=== PATIENT | male | born 1945 | race Caucasian/White ===

== ENCOUNTER 2017-04-06 05:32 | Inpatient (IN) | payer OTHER, MEDICARE ==
[~2017-04-06] VITALS: Ht 182.9 cm; Wt 91.5 kg
[2017-04-06] VITALS (10 sets, daily range): BP systolic 90–155; BP diastolic 47–69; PULSE 64–76; RESP 12–18; TEMP 98.3–98.8; O2SAT 92–99
[~2017-04-06 05:32] MED LIST: AMLO5TAB2 PO; ASPI81TA23 PO; DICL75TA PO; HYDR25TA5 PO; IBUP1TAB7 PO; LOSA50TA PO; LOVA40TA PO; PANT40TA3 PO
[2017-04-06] MEDS ORDERED: POVIDONE IODINE 5% (ANTISEPSIS KIT) 4 APPLICATIONS EACH NARE PRN (06:00)
[2017-04-06] MEDS ORDERED: SODIUM CHLORID 0.9% 500 ML IV PRN (06:00)
[2017-04-06] MEDS ORDERED: METOPROLOL TARTRATE 25 MG TAB PO PRN (06:00)
[2017-04-06] MEDS ORDERED: PAPAVERINE 60 MG-NITROGLYCERIN 100 MCG-DILTIAZEM 100 MG in NS 100 ML IRRIGATION SCH ×4 (06:00)
[2017-04-06] MEDS ORDERED: SODIUM CHLORIDE 0.9% FLUSH 10 ML FLUSH IV FLUSH PRN ×3 (06:00→12:45)
[2017-04-06] MEDS ORDERED: DEXTROSE 50% IN WATER 50 ML VIAL(D50) IV PUSH PRN ×2 (06:00→12:45)
[2017-04-06] MEDS ORDERED: CHLORHEXIDINE GLUCONATE 4% SOLN 120 ML BTL TOPICAL SCH (06:00)
[2017-04-06] MEDS ORDERED: CHLORHEXIDINE GLUCONATE 2 % 1 PACK (2 CLOTHS) TOPICAL PRN (06:00)
[2017-04-06] MEDS ORDERED: INSULIN REGULAR 100 UNITS in NS 100 ML IV PRN (06:00)
[2017-04-06] MEDS ORDERED: LACTATED RINGER'S 1000 ML IV PRN (06:00)
[2017-04-06] MEDS ORDERED: CEFAZOLIN 500 MG in NS IRR BTL 500 ML IRRIGATION SCH (06:00)
[2017-04-06] MEDS ORDERED: METOPROLOL TARTRATE 25 MG TAB PO SCH (06:00)
[2017-04-06] MEDS ORDERED: VANCOMYCIN HCL 1000 MG VIAL ONE (06:19)
[2017-04-06] MEDS ORDERED: ceFAZolin 2 GM PREMIX 100 ML ONE (06:19)
[2017-04-06] MEDS ORDERED: HEPARIN SODIUM - SQ 10,000 UNITS/ML VIAL ONE (06:19)
[2017-04-06] MEDS ORDERED: POTASSIUM CHLORIDE 40 MEQ/20 ML VIAL ONE (07:15)
[2017-04-06] MEDS ORDERED: CUSTODIOL HTK IRR SOLN 3,000 ML ONE (07:15)
[2017-04-06] MEDS ORDERED: CALCIUM CHLORIDE 10% SOLN 1 GRAM/10 ML SYR ONE (07:16)
[2017-04-06] MEDS ORDERED: MANNITOL INJ 100 ML ONE (07:16)
[2017-04-06] MEDS ORDERED: HEPARIN SODIUM - IV 10,000 UNITS/10 ML VIAL ONE (07:16)
[2017-04-06] MEDS ORDERED: ALBUMIN 25% INJ 50 ML IV ONE (07:17)
[2017-04-06] MEDS ORDERED: SODIUM BICARBONATE 8.4% INJ 150 ML ONE (07:17)
[2017-04-06] MEDS: ceFAZolin 2 GM PREMIX 50 ML IV SCH ×3 (08:12→19:20)
--- NOTE | 2017-04-06 09:01 | PD.CAR.PN ---
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
[2017-04-06] MEDS ORDERED: SODIUM CHLORIDE 0.9% INJ 50 ML ONE (11:54)
[2017-04-06] MEDS ORDERED: LACTATED RINGER'S 1000 ML INJ 1,000 ML IV ONE (12:00)
[2017-04-06] MEDS ORDERED: PROTAMINE SULFATE 250 MG/25 ML VIAL IV ONE (12:00)
[2017-04-06] MEDS ORDERED: ePHEDrine/NS 25 MG/5 ML SYRINGE IV ONE (12:00)
[2017-04-06] MEDS ORDERED: PHENYLEPHRINE HCL 10 MG/ML VIAL IV ONE (12:00)
[2017-04-06] MEDS ORDERED: SODIUM CHLOR 0.9% 250 ML INJ 500 ML IV ONE (12:00)
[2017-04-06] MEDS ORDERED: AMINOCAPROIC ACID INJ 250 MG/ML 20 ML VIAL IV ONE (12:00)
[2017-04-06] MEDS ORDERED: DEXMEDETOMIDINE HCL 200 MCG/2 ML VIAL IV ONE (12:00)
[2017-04-06] MEDS ORDERED: PHENYLEPH/NS 1000 MCG/10 ML SYR IV ONE (12:00)
[2017-04-06] MEDS ORDERED: CARDIOPLEGIC IRR 2,000 ML ONE (12:00)
[2017-04-06] MEDS ORDERED: NORMOSOL R INJ 2,000 ML IV ONE (12:00)
[2017-04-06] MEDS ORDERED: HEPARIN SODIUM - SQ 10,000 UNITS/ML VIAL OTHER ONE (12:00)
[2017-04-06] MEDS ORDERED: NITROGLYCERIN 50 MG/DEXTROSE 5% SOLN 250 ML BTL IV ONE (12:00)
[2017-04-06] MEDS ORDERED: MAGNESIUM SULFATE 1 GM/2 ML VIAL IV ONE (12:00)
[2017-04-06] MEDS ORDERED: VECURONIUM BROMIDE 10 MG VIAL IV ONE (12:00)
[2017-04-06] MEDS ORDERED: NS 100 ML (PAB BAG) 100 ML IV ONE (12:00)
[2017-04-06] MEDS ORDERED: LACTATED RINGER'S 1000 ML INJ 500 ML IV PRN (12:34)
[2017-04-06] MEDS ORDERED: ACETAMINOPHEN 650 MG SUPP RECTAL PRN (12:45)
[2017-04-06] MEDS ORDERED: POTASSIUM CHLORIDE 20 MEQ CONTROLLED RELEASE TAB PO PRN ×2 (12:45)
[2017-04-06] MEDS ORDERED: hydrALAZINE HCL 20 MG/ML VIAL IV PUSH PRN (12:45)
[2017-04-06] MEDS ORDERED: METOPROLOL TARTRATE 5 MG/5 ML VIAL IV PUSH PRN (12:45)
[2017-04-06] MEDS ORDERED: CALCIUM CHLORIDE INJ 1 GM in SODIUM CHLORIDE 0.9% INJ 100 ML IV PRN (12:45)
[2017-04-06] MEDS ORDERED: SODIUM BICARBONATE 8.4% SOLN 50 MEQ/50 ML VIAL IV PUSH PRN ×2 (12:45)
[2017-04-06] MEDS ORDERED: ONDANSETRON HCL 4 MG/2 ML VIAL IV PUSH PRN (12:45)
[2017-04-06] MEDS ORDERED: POTASSIUM CHLOR 20 MEQ PREMIX 100 ML IV PRN ×3 (12:45)
[2017-04-06] MEDS ORDERED: RESP: RACEPINEPHRINE 2.25% 0.5 ML NEB NEB PRN (12:45)
[2017-04-06] MEDS ORDERED: ACETAMINOPHEN 325 MG TAB PO PRN (12:45)
[2017-04-06] MEDS ORDERED: Post-op Orders (for Pharmacy) OTHER ONE (12:45)
[2017-04-06] MEDS ORDERED: ACETAMINOPHEN/HYDROcodone 325 MG/5 MG TAB PO PRN (12:45)
[2017-04-06] MEDS ORDERED: CALCIUM CHLORIDE 10% 1 GRAM/10 ML VIAL IV PUSH PRN (12:45)
[2017-04-06] MEDS ORDERED: MEPERIDINE HCL 25 MG/ML VIAL IV PUSH PRN (12:45)
[2017-04-06] MEDS ORDERED: MAGNESIUM SULFATE INJ 2 GM in SODIUM CHLORIDE 0.9% INJ 100 ML IV PRN ×4 (12:45)
[2017-04-06] MEDS ORDERED: ALBUMIN 5% INJ 250 ML IV PRN (12:45)
[2017-04-06] MEDS ORDERED: ACETAMINOPHEN 1000 MG/100 ML 100 ML IV SCH (13:30)
[2017-04-06] MEDS ORDERED: PHENYLEPHRINE INJ 40 MG in DEXTROSE 5% IN WATE 500 ML INJ 496 ML IV PRN ×2 (14:00)
[2017-04-06] MEDS ORDERED: CLEVIDIPINE INJ 50 ML IV PRN (14:00)
[2017-04-06] MEDS ORDERED: NITROGLYCERIN-D5W 50 MG/250 ML 250 ML IV PRN (14:00)
[2017-04-06] MEDS ORDERED: DEXMEDETOMIDINE INJ 200 MCG in SODIUM CHLORIDE 0.9% INJ 50 ML IV PRN (14:00)
[2017-04-06] MEDS ORDERED: INSULIN REGULAR (IV INFUSION) 100 UNITS in SODIUM CHLORIDE 0.9% INJ 99 ML IV PRN (14:00)
[2017-04-06] MEDS ORDERED: DOPamine INJ PREMIX 500 ML IV PRN (14:00)
[2017-04-06] MEDS ORDERED: DOBUTamine PREMIX DRIP 250 ML IV PRN (14:00)
--- NOTE | 2017-04-06 14:04 | RADRPT ---
EXAM DATE/TIME: 04/06/2017 13:19 [facility] COMPARISON: No previous studies available for comparison. INDICATIONS : Status post coronary artery bypass graft surgery. MEDICAL HISTORY : None. SURGICAL HISTORY : None. ENCOUNTER: Initial ACUITY: 1 day PAIN SCORE: Non-responsive. LOCATION: chest FINDINGS: ET tube, mediastinal drain, central line in good position. Minimal bibasilar parenchymal changes are evident. Lung vascularity mediastinum appears appropriate. CONCLUSION: Support the breast in good position. There is no pneumothorax. Lungs are reasonably clear. Say Krishna MD FACR on April 06, 2017 at 14:01 Board Certified Radiologist. This report was verified electronically.
[2017-04-06] MEDS ORDERED: MORPHINE SULFATE 2 MG/ML INJ IV PUSH PRN (14:15)
[2017-04-06] MEDS ORDERED: HYDROmorphone HCL 2 MG TAB PO PRN (14:30)
[2017-04-06] MEDS: KETOROLAC TROMETHAMINE 30 MG/ML (IVP) VIAL IV PUSH PRN (14:37)
[2017-04-06] MEDS ORDERED: PILL SPLITTER OTHER PRN (14:45)
--- NOTE | 2017-04-06 14:51 | PD.OP ---
cc: Luis Eduardo Maldonado MD; Trina Maradiaga Jr., MD Operative Report Date of Surgery: Apr 06, 2017 Preoperative Diagnosis: Postoperative Diagnosis: Procedure: SURGICAL PROCEDURE 1. Coronary Artery Bypass Grafting x 1 with reverse saphenous vein graft to the left posterior descending branch of the Circumflex artery (LPDA) 2. Aortic Valve Replacement with 25 mm Medtronic Mosaic Tissue Valve 3. Let Leg Endoscopic Vein Harvesting 4. Intraoperative Vein Mapping Surgeon: Luis Eduardo Maldonado Hooker Up(s): Dorcas Villegas Operation and Findings: PREPROCEDURE DIAGNOSES 1. Severe Left Posterior Descending Artery (LPDA) Coronary Artery Disease. 2. Critical Aortic Valve Stenosis 3. HTN POSTPROCEDURE DIAGNOSES Same SURGICAL PROCEDURE 1. Coronary Artery Bypass Grafting x 1 with reverse saphenous vein graft to the left posterior descending branch of the Circumflex artery (LPDA) 2. Aortic Valve Replacement with 25 mm Medtronic Mosaic Tissue Valve 3. Let Leg Endoscopic Vein Harvesting 4. Intraoperative Vein Mapping SURGEON Luis Eduardo Maldonado MD AUTOMOTIVE EXHAUST EMISSIONS TECHNICIAN ANGIE Maradiaga PA-C - [facility] ANESTHESIA General endotracheal INSPECTION SUPERVISOR NATALIE Mcclendon MD PREPARATION ChloraPrep. COUNTS Needle, sponge, and instrument counts were correct. DRAINS Two 32-[place] mediastinal tubes. COMPLICATIONS None. INDICATIONS FOR PROCEDURE The patient is a 71-year-old presenting with shortness of breath and known . Patient was noted to have critical LPDA coronary artery disease in addition to severe . The patient is being brought to the operating room for surgical revascularization and AVR therapy. PROCEDURE Patient was brought to the operating room and placed supine on the OR table. Following the induction of adequate general endotracheal anesthesia and placement of appropriate monitoring devices, intraoperative vein mapping was performed which revealed -caliber conduit in bilateral lower extremities. The patient was then prepped and draped in standard sterile fashion. Next, 2500 units of intravenous heparin was given. The left greater saphenous vein was harvested endoscopically. This appeared to be a useable-caliber conduit. Simultaneously, a median sternotomy was performed. The patient was systemically heparinized and anticoagulation monitored by serial ACT measurements. The pericardium was then divided in the midline, the cradle created and target analyzed. Two pursestring sutures of 2-0 Ethibond were placed on the aorta proximal to the takeoff of the innominate artery, another was placed in the right atrial appendage. At this point, aortic and 2-stage venous cannulas were introduced and attached to the arterial and venous components of the bypass circuit respectively. Antegrade cardioplegia cannula and a left ventricular vent, through the right superior pulmonary vein, were also placed. The patient was placed on cardiopulmonary bypass and core cooling initiated to a temperature of 32 degrees centigrade. At this point, the reversed saphenous vein was anastomosed to the LPDA (2 mm) in an end-to-side fashion using 7-0 Prolene. The crossclamp was applied and 1.8 L of cardioplegia solution ( Fpc HTK) given in an antegrade fashion into the root as well as through the vein graft, in addition to topical cooling with slushed saline. Upon achieving adequate diastolic arrest of the heart a transverse aortotomy was performed extending towards the non-coronary annulus. The aortic valve was noted to be very heavily calcified with the calcification extending into ascending aorta. The valve was excised and sent for microbiologic analysis. Circumferential decalcification was performed. Horizontal mattress sutures of pledgeted 2-0 Ethibond were placed circumferentially in the aortic annulus with the pledgets on the ventricular side. After adequate sizing, a 25 mm Medtronic Mosaic tissue valve was brought in the surgical field and the sutures passed through the skirt. The valve was situated supra-annular. The sutures were tied with Cor-knots. This appeared to be a good fit. Gradual rewarming was initiated and the aortotomy closed in 2 layers. This was with 4-0 Prolene; the 1st layer being horizontal mattress, the 2nd layer being running baseball stitch. The proximal anastomosis was performed to the ascending aorta using a running 6-0 Prolene. The cross clamp was removed and upon achieving normothermic cardiac activity, the patient was weaned off of the cardiopulmonary bypass circuit without any difficulty. Transesophageal echocardiography revealed a well- situated aortic prosthesis with no evidence of perivalvular leak and no aortic stenosis or aortic regurgitation. Protamine was administered. Decannulation was performed and all sites were inspected for hemostasis. All anastomotic sites were inspected and appeared to be hemostatic and patent. Strict hemostasis was assured. The closure was undertaken. 2 chest tubes were placed. The pericardium was reapproximated in the midline. The sternum was approximated using sternal wires. The muscular and fascial layers were then closed in 3 layers. The endoscopic vein harvest site was closed in 2 layers. The patient tolerated the procedure well and was transferred to CVICU in stable condition. Luis Eduardo Maldonado MD Apr 06, 2017 14:51
[2017-04-06] MEDS: RESP: ALBUTEROL 2.5 MG/IPRATROPIUM 0.5 MG NEB (SCH) NEB ×2 (14:59→22:00)
[2017-04-06] MEDS: SODIUM CHLORIDE 0.9% FLUSH 10 ML FLUSH IV FLUSH SCH (19:20)
[2017-04-06] MEDS: AMIODARONE 200 MG TAB PO SCH (20:05)
[2017-04-07] VITALS (17 sets, daily range): BP systolic 100–144; BP diastolic 48–74; PULSE 78–95; RESP 18–19; TEMP 98–98.9; O2SAT 92–96
[2017-04-07] MEDS: KETOROLAC TROMETHAMINE 30 MG/ML (IVP) VIAL IV PUSH PRN ×4 (00:36→18:28)
[2017-04-07] MEDS: RESP: ALBUTEROL 2.5 MG/IPRATROPIUM 0.5 MG NEB (SCH) NEB ×6 (04:20→22:42)
[2017-04-07 04:24] LABS: HEMATOCRIT 33.4 % (39.0-51.0); HEMOGLOBIN 11.2 GM/DL (13.0-17.0); MEAN CELL VOLUME 95.9 FL (80.0-100.0); MEAN CORPUSCULAR HEMOGLOBIN 32.2 PG (27.0-34.0); MEAN CORPUSCULAR HGB CONC 33.6 % (32.0-36.0); MEAN PLATELET VOLUME 7.3 FL (7.0-11.0); PLATELET COUNT 132 TH/MM3 (150-450); RED BLOOD COUNT 3.49 MIL/MM3 (4.50-5.90)
[2017-04-07 04:46] LABS: BICARBONATE 22.9 MEQ/L (21.0-32.0); CREATININE 0.89 MG/DL (0.60-1.30); MAGNESIUM 2.1 MG/DL (1.5-2.5)
--- NOTE | 2017-04-07 05:26 | RADRPT ---
EXAM DATE/TIME: 04/07/2017 04:34 [facility] COMPARISON: CHEST SINGLE AP, April 06, 2017, 13:19. INDICATIONS : Shortness of breath. MEDICAL HISTORY : None. SURGICAL HISTORY : CABG. ENCOUNTER: Subsequent ACUITY: 2 days PAIN SCORE: 0/10 LOCATION: Bilateral chest FINDINGS: The cardiac silhouette is enlarged in transverse diameter. There is left lower lobe atelectasis versu s pneumonia. There is subsegmental atelectasis in the right base. Small bilateral pleural effusions a re identified. CONCLUSION: 1. Cardiomegaly. Left lower lobe atelectasis versus pneumonia. Mina Stewart MD on April 07, 2017 at 5:24 Board Certified Radiologist. This report was verified electronically.
[2017-04-07] MEDS: ceFAZolin 2 GM PREMIX 50 ML IV SCH ×3 (05:46→20:08)
[2017-04-07] MEDS: PANTOPRAZOLE SOD 40 MG DELAYED RELEASE TAB PO SCH (05:47)
[2017-04-07] MEDS: AMIODARONE 200 MG TAB PO SCH ×2 (09:00→20:54)
[2017-04-07] MEDS ORDERED: MULTIVITAMIN INJ 10 ML, THIAMINE INJ 500 MG, FOLIC ACID INJ 1 MG in SODIUM CHLORID 0.9%... IV SCH (09:00)
[2017-04-07] MEDS: ASPIRIN 81 MG CHEW TAB PO SCH (09:01)
[2017-04-07] MEDS: CLOPIDOGREL 75 MG TAB PO SCH (09:01)
[2017-04-07] MEDS: SODIUM CHLORIDE 0.9% FLUSH 10 ML FLUSH IV FLUSH SCH ×2 (09:01→20:54)
[2017-04-07] MEDS ORDERED: INFLUENZA VIRUS VACCINE (QUADRIVALENT) 0.5 ML SYR IM ONE (10:00)
--- NOTE | 2017-04-07 10:13 | HHI.FF ---
Face to Face Verification Diagnosis: (1) Hypertension (2) Hyperlipemia (3) S/P AVR (aortic valve replacement) (4) S/P CABG x 1 (5) Aortic stenosis (6) Coronary artery disease (7) Obstructive sleep apnea Home Health Nursing Order: Signs/symptoms of disease process Medication education-adverse effect Wound care and dressing changes Nursing assessment with vital signs Instructions: Heart and Vascular Surgery patients *Special attention to sternal dressing Mandatory frequency Assess and evaluation, 4 days in a row The next week 3X week 2 times a week for 4 weeks 1 time a week for 5 weeks Schedule Heart and Vascular patients for full 60 day certification period Initial visit Review Open Heart Surgery Discharge Instructions (Sternal precautions, Activity, Elastic hose, Incision care, Driving, Incentive spirometry, Smoking, [place], Work and other) Need Betadine to paint incision Medication reconciliation Importance of follow up care/ check on appointments Make calendar record temperature daily When to call [facility] at Home nurse, review instructions, phone list Incentive Spirometry, demonstration Visit 1- Begin discharge instruction for patient family and/ or caregiver using teach back method- Signs and symptoms of infection Disease characteristics Medicines and side effects Foods and nutrition/ appetite Infection control/ hand washing/ hygiene Visit 2- Continue teaching Discharge instructions- include additional information on smoking cessation , sternal dressing (sternal vac) Visit 3- Continue teaching- Cough and deep breathing, incision monitoring. Choose my plate Visit 4- Continue teaching- Discuss limitations Discuss how they are feeling Discuss progress toward goals Remaining visits- continue teaching and monitoring PREVENA Single Use Negative Wound Therapy System Caregiver Instruction Sheet 1. A Prevena dressing system was applied to the chest incision during surgery , to promote wound healing. It works via a suction device (negative pressure wound therapy) to remove low to moderate levels of exudate (drainage) and infectious materials. We recommend that the device stay in place for up to seven days, from day of surgery. 2. Day of Surgery___04/06/17 Day of Removal ____04/13/17 3. The dressing should only be removed by a health career placement specialist. Please arrange removal of device to coincide with Home Health visit and or with Nursing staff at Rehab 4. If skin reddening or irritation of skin occurs, or excessive drainage, please notify the Cardiovascular Surgeons office at [phone]. 5. Light showering is permissible; however the pump should be disconnected and placed in safe location, where it will not get wet. The dressing should not be exposed to direct spray or submerged in water. No bath tub / shower only. Ensure the end of the tubing attached to the dressing is facing down so that water does not enter the top of the tube. 6. To remove Prevena dressing: press purple button to turn off device / remove the suction. Then disconnect the tubing from the pump. The fixation strips should be stretched away from the skin and the dressing lifted at one corner and peeled back until it has been fully removed. 7. After removal, it is ok to shower daily using liquid dial soap and clean wash cloth, rinse and pat dry, and leave incision open to air dry. For any concerns regarding Prevena dressing, and or wounds, please contact Cora Pascal, patient navigator at [phone] or notify the Cardiovascular Surgeons office at [phone]. Incentive spirometry Q1 hr x 10, while awake, also use acapella device hourly whole awake Sternal Breast Bone Precautions: NO pushing or pulling, ( pt must use sternal pillow to support chest with all activities and with coughing ( takes up to 3 months breast bone to heal ) Daily incision care: ok to shower daily, no tub bath. Wash all incisions with liquid dial soap, clean wash cloth to each site, rinse and pat dry. Observe for any signs of infection, such as drainage which is dark yellow, solo, green or foul smelling. Immediately report to the surgeon any drainage from the chest incision, or legs, and for any abnormal drainage from the chest tube sites. Notify surgeon if any temp >101.5 degrees F. When specialty dressing removed/ or if you do not have one, continue to shower daily as above, then rinse and pat incision dry and paint with betadine daily x 5 days. Allow steri strips to fall off if you have any. Avoid lotions, creams, salves, oils, etc. for the first month Please see attached forms for additional instructions regarding post Open Heart specialty wound vacuum dressings. JOSSELYN or Prevena , Dressing to be removed by Nursing staff on __04/13/17 F/U appointment: as per DC instructions: PCP in 2 weeks, CV surgeon 2 weeks, Inspection And Testing Supervisor 3-4 weeks For any questions regarding incisions/ dressing / meds / post op care or above Symptoms, Thursday 8am-5pm Heart & Vascular Surgery Office ( Dr. Maldonado & Dr. Swanson), After Hours / Nights (5pm -8am) Weekends and Holidays Please call [facility] Cardiac [facility] Unit (CIC) Charge Nurse I have seen patient Aubrey Kimbrough on 04/07/17. My clinical findings support the need for the requested home health care services because: Deconditioned w/ increased weakness I certify that my clinical findings support that this patient is homebound because: Post-op weakness Milena Lama Apr 07, 2017 10:13
[2017-04-07] MEDS ORDERED: DEXTROSE 50% IN WATER 50 ML VIAL(D50) IV PUSH PRN (10:15)
[2017-04-07] MEDS ORDERED: BISACODYL 10 MG SUPP RECTAL PRN (10:15)
[2017-04-07] MEDS ORDERED: SOD PHOSPHATE/SOD BIPHOSPHATE (ADULT) ENEMA 133ML RECTAL PRN (10:15)
[2017-04-07] MEDS ORDERED: GLUCAGON 1 MG/ML VIAL OTHER PRN (10:15)
--- NOTE | 2017-04-07 10:23 | PD.CAR.PN ---
CVT Progress Note Subjective/Hospital Course: 71/ male progressive weakness, dyspnea and fatigue , underwent evaluation by Capacity Management Specialist Dr Lujan, found to have severe , single vessel CAD / 90% LPDA , preserved LF function here for elective AVR/ CABG x 1 PMH: , CAD , TB at age 4, HTN, DJD both knees , SOHAN surgery: 04/06/17 1. Coronary Artery Bypass Grafting x 1 with reverse saphenous vein graft to the left posterior descending branch of the Circumflex artery (LPDA) 2. Aortic Valve Replacement with 25 mm Medtronic Mosaic Tissue Valve 3. Let Leg Endoscopic Vein Harvesting 4. Intraoperative Vein Mapping 2700cc crystalloid, 500cc cell saver, 1000cc EBL extubated after surgery 04/07/17 painful, up in chair, at bedside, helps to translate for pt / " he is not allergic to Tylenol ( acetaminophen) only oxycodone/ allergy list updated pain meds changed drained 130cc/ 12 hrs from chest tube on nasal cannula started on BB , on ASA, Plavix, statin resumed transfer to stepdown Objective: GENERAL: A&O x 3 SKIN: Warm and dry. prevena to chest , incision intact to left leg HEAD: Normocephalic. EYES: No scleral icterus. No injection or drainage. NECK: Supple, trachea midline. No JVD or lymphadenopathy. CARDIOVASCULAR: Regular rate and rhythm without murmurs, gallops, or rubs. RESPIRATORY: Breath sounds equal bilaterally. No accessory muscle use. diminished in bases, otherwise CTA/ chestt ube to wall suction , no air leak GASTROINTESTINAL: Abdomen soft, non-tender, nondistended. MUSCULOSKELETAL: No cyanosis, or edema. BACK: Nontender without obvious deformity. No CVA tenderness. Vital Signs Date Time Temp Pulse Resp B/P (MAP) Pulse Ox O2 Delivery O2 Flow Rate FiO2 04/07/17 08:24 93 Nasal Cannula 3.00 04/07/17 07:00 91 04/07/17 07:00 98.3 91 18 106/58 (74) 92 129/64 (85) 04/07/17 07:00 94 Nasal Cannula 2.00 04/07/17 06:45 18 04/07/17 04:21 96 Nasal Cannula 3.00 04/07/17 03:30 20 04/07/17 03:00 94 Nasal Cannula 2.00 04/07/17 03:00 98.9 79 18 127/63 (84) 93 144/69 (94) 04/06/17 23:00 92 Nasal Cannula 2.00 04/06/17 23:00 76 04/06/17 23:00 98.8 76 18 128/66 (86) 92 155/63 (93) 04/06/17 19:00 98.5 69 18 119/69 (86) 95 135/59 (84) 04/06/17 19:00 95 Nasal Cannula 2.00 04/06/17 16:06 98.4 04/06/17 15:00 94 Nasal Cannula 2.00 04/06/17 15:00 98.3 66 16 96/59 (71) 94 100/49 (66) 04/06/17 15:00 97 Nasal Cannula 2.00 04/06/17 15:00 66 04/06/17 14:55 97 Nasal Cannula 3 04/06/17 14:20 99 50 04/06/17 14:20 50 04/06/17 13:13 98.4 04/06/17 13:08 99 Mechanical Ventilator 50 04/06/17 13:08 64 04/06/17 13:08 98.6 64 12 102/56 (71) 99 90/47 (61) 04/06/17 13:08 50 04/06/17 13:05 98 60 Labs: Laboratory Tests Test 04/07/17 04:00 White Blood Count 8.0 TH/MM3 (4.0-11.0) Red Blood Count 3.49 MIL/MM3 (4.50-5.90) Hemoglobin 11.2 GM/DL (13.0-17.0) Hematocrit 33.4 % (39.0-51.0) Mean Corpuscular Volume 95.9 FL (80.0-100.0) Mean Corpuscular Hemoglobin 32.2 PG (27.0-34.0) Mean Corpuscular Hemoglobin Concent 33.6 % (32.0-36.0) Red Cell Distribution Width 14.0 % (11.6-17.2) Platelet Count 132 TH/MM3 (150-450) Mean Platelet Volume 7.3 FL (7.0-11.0) Blood Urea Nitrogen 25 MG/DL (7-18) Creatinine 0.89 MG/DL (0.60-1.30) Random Glucose 103 MG/DL (74-106) Calcium Level 8.0 MG/DL (8.5-10.1) Magnesium Level 2.1 MG/DL (1.5-2.5) Sodium Level 143 MEQ/L (136-145) Potassium Level 4.1 MEQ/L (3.5-5.1) Chloride Level 110 MEQ/L (98-107) Carbon Dioxide Level 22.9 MEQ/L (21.0-32.0) Anion Gap 10 MEQ/L (5-15) Estimat Glomerular Filtration Rate 84 ML/MIN (>89) Result Diagram: 04/07/1739904/07/17399 Telemetry: NSR (1) Coronary artery disease (2) S/P AVR (aortic valve replacement) (3) S/P CABG x 1 Plan: on ASA statin , BB , plavix, amiodarone pulm toileting CPAP at night OOB ambulate CM to eval for C transfer to [facility] (4) Aortic stenosis (5) Hyperlipemia Plan: resume statin heart healthy diet (6) Hypertension Plan: stable (7) Obstructive sleep apnea Plan: CPAP machine at night Milena Lama Apr 07, 2017 10:23
[2017-04-07] MEDS: DOCUSATE SODIUM 100 MG CAP PO SCH ×2 (10:44→20:54)
[2017-04-07] MEDS: METOPROLOL TARTRATE 25 MG TAB PO SCH ×2 (10:44→20:55)
[2017-04-07] MEDS ORDERED: ACETAMINOPHEN 1000 MG/100 ML 100 ML IV PRN (11:00)
[2017-04-07] MEDS: INSULIN ASPART SUPPLEMENTAL SCALE SQ SCH ×4 (11:02→22:00)
[2017-04-07] MEDS: ACETAMINOPHEN/HYDROcodone 325 MG/7.5 MG TAB PO PRN ×2 (14:26→22:14)
--- NOTE | 2017-04-07 16:29 | EKG ---
Date Performed: 04/07/2017 Time Performed: 04:53:32 PTAGE: 71 years EKG: Sinus rhythm with frequent PVCs. Lead(s) unsuitable for analysis: V1 Lateral ST-T changes are nonspecific Diffuse nonspecific ST-T wave changes Abnormal ECG NO PREVIOUS TRACING Cannot rule out ischemia. Clinical correlation is recommended. DOCTOR: Med Joseph Interpretating Date/Time 04/07/2017 16:27:58
[2017-04-07] MEDS: SENNOSIDES 8.6 MG TAB PO SCH (20:54)
[2017-04-07] MEDS: PRAVASTATIN SOD 40 MG TAB PO SCH (20:54)
[2017-04-08] VITALS (26 sets, daily range): BP systolic 112–144; BP diastolic 61–77; PULSE 73–92; RESP 16–20; TEMP 97.9–98.4; O2SAT 93–97
[2017-04-08] MEDS: INSULIN ASPART SUPPLEMENTAL SCALE SQ SCH ×5 (02:00→21:00)
[2017-04-08] MEDS: ceFAZolin 2 GM PREMIX 50 ML IV SCH (03:17)
[2017-04-08] MEDS: RESP: ALBUTEROL 2.5 MG/IPRATROPIUM 0.5 MG NEB (SCH) NEB ×4 (03:51→20:02)
[2017-04-08] MEDS: ACETAMINOPHEN/HYDROcodone 325 MG/7.5 MG TAB PO PRN ×3 (05:11→21:57)
[2017-04-08 05:25] LABS: AUTOMATED NEUTROPHIL # 6.2 TH/MM3 (1.8-7.7); BASOPHIL % 0.3 % (0.0-2.0); EOSINOPHIL % 0.3 % (0.0-4.0); HEMATOCRIT 31.2 % (39.0-51.0); HEMOGLOBIN 10.7 GM/DL (13.0-17.0); LYMPH % 8.2 % (9.0-44.0); LYMPHOCYTE # 0.7 TH/MM3 (1.0-4.8); MEAN CELL VOLUME 95.9 FL (80.0-100.0); MEAN CORPUSCULAR HEMOGLOBIN 32.8 PG (27.0-34.0); MEAN CORPUSCULAR HGB CONC 34.2 % (32.0-36.0); MEAN PLATELET VOLUME 6.9 FL (7.0-11.0); MONO % 13.9 % (0.0-8.0); MONOCYTE # 1.1 TH/MM3 (0-0.9); NEUT % 77.3 % (16.0-70.0); PLATELET COUNT 136 TH/MM3 (150-450); RED BLOOD COUNT 3.25 MIL/MM3 (4.50-5.90); RED CELL DISTRIBUTION WIDTH 13.9 % (11.6-17.2); WHITE BLOOD COUNT 8.1 TH/MM3 (4.0-11.0)
[2017-04-08] MEDS: PANTOPRAZOLE SOD 40 MG DELAYED RELEASE TAB PO SCH (05:34)
[2017-04-08 05:53] LABS: BICARBONATE 29.2 MEQ/L (21.0-32.0); CREATININE 1.03 MG/DL (0.60-1.30); MAGNESIUM 2.1 MG/DL (1.5-2.5)
[2017-04-08] MEDS: METOPROLOL TARTRATE 25 MG TAB PO SCH ×2 (10:02→21:43)
[2017-04-08] MEDS: AMIODARONE 200 MG TAB PO SCH ×2 (10:02→21:43)
[2017-04-08] MEDS: MULTIVITAMINS/MINERALS THERAPEUTIC TAB PO SCH (10:02)
[2017-04-08] MEDS: MAGNESIUM HYDROXIDE SUSP 30 ML CUP PO SCH (10:02)
[2017-04-08] MEDS: POLYETHYLENE GLYCOL 17 GM PKG PO SCH (10:02)
[2017-04-08] MEDS: CLOPIDOGREL 75 MG TAB PO SCH (10:03)
[2017-04-08] MEDS: DOCUSATE SODIUM 100 MG CAP PO SCH ×2 (10:03→21:00)
[2017-04-08] MEDS: ASPIRIN 81 MG CHEW TAB PO SCH (10:03)
[2017-04-08] MEDS: SODIUM CHLORIDE 0.9% FLUSH 10 ML FLUSH IV FLUSH SCH ×2 (10:04→21:42)
--- NOTE | 2017-04-08 10:12 | RSPPFT ---
DATE OF PROCEDURE: 04/06/17 COMMENTS: Spirometry with FVC of 4.0, FEV1 of 2.8, FEV1/FVC ratio at 70%. Post-bronchodilator study was not performed. IMPRESSION: 1. Moderate airways obstruction. 2. Post-bronchodilator study was not done.
--- NOTE | 2017-04-08 11:39 | PD.CAR.PN ---
CVT Progress Note Subjective/Hospital Course: 71/ male progressive weakness, dyspnea and fatigue , underwent evaluation by Funeral Location Manager Dr Lujan, found to have severe , single vessel CAD / 90% LPDA , preserved LF function here for elective AVR/ CABG x 1 PMH: , CAD , TB at age 4, HTN, DJD both knees , SOHAN surgery: 04/06/17 1. Coronary Artery Bypass Grafting x 1 with reverse saphenous vein graft to the left posterior descending branch of the Circumflex artery (LPDA) 2. Aortic Valve Replacement with 25 mm Medtronic Mosaic Tissue Valve 3. Let Leg Endoscopic Vein Harvesting 4. Intraoperative Vein Mapping 2700cc crystalloid, 500cc cell saver, 1000cc EBL extubated after surgery 04/07/17 painful, up in chair, at bedside, helps to translate for pt / " he is not allergic to Tylenol ( acetaminophen) only oxycodone/ allergy list updated pain meds changed drained 130cc/ 12 hrs from chest tube on nasal cannula started on BB , on ASA, Plavix, statin resumed transfer to stepdown 04/08 chest tube dc without difficulty, v wire removed on nasal cannula 3 liters, + weight , gentle diuresis OOB ambulate Objective: GENERAL: A&O x 3 SKIN: Warm and dry. prevena dressing to chest , incision intact to left [facility] assistant professor nurse education: Normocephalic. EYES: No scleral icterus. No injection or drainage. NECK: Supple, trachea midline. No JVD or lymphadenopathy. CARDIOVASCULAR: Regular rate and rhythm without murmurs, gallops, or rubs. RESPIRATORY: Breath sounds equal bilaterally. No accessory muscle use. chest tube removed without difficulty GASTROINTESTINAL: Abdomen soft, non-tender, nondistended. MUSCULOSKELETAL: No cyanosis, or edema. BACK: Nontender without obvious deformity. No CVA tenderness. Vital Signs Date Time Temp Pulse Resp B/P (MAP) Pulse Ox O2 Delivery O2 Flow Rate FiO2 04/08/17 08:24 95 Nasal Cannula 3.00 04/08/17 06:40 75 04/08/17 05:40 75 04/08/17 04:24 74 04/08/17 03:40 98.0 74 19 115/61 (79) 97 04/08/17 03:40 97 Nasal Cannula 2.00 04/08/17 03:40 75 04/08/17 02:51 73 04/08/17 01:14 77 04/08/17 00:00 81 04/07/17 23:40 98.0 83 19 142/74 (96) 96 04/07/17 23:40 98 Nasal Cannula 2.00 04/07/17 23:39 81 04/07/17 22:00 78 04/07/17 21:30 80 04/07/17 20:00 79 04/07/17 19:40 89 04/07/17 19:40 93 Nasal Cannula 2.00 04/07/17 19:40 98.8 95 18 126/63 (84) 93 04/07/17 18:00 80 04/07/17 17:00 80 04/07/17 16:00 78 04/07/17 15:00 83 04/07/17 15:00 98.8 85 18 122/61 (81) 95 04/07/17 15:00 95 Nasal Cannula 2.00 04/07/17 14:00 82 04/07/17 13:48 98.8 85 18 122/61 (81) 95 Labs: Laboratory Tests Test 04/08/17 05:17 White Blood Count 8.1 TH/MM3 (4.0-11.0) Red Blood Count 3.25 MIL/MM3 (4.50-5.90) Hemoglobin 10.7 GM/DL (13.0-17.0) Hematocrit 31.2 % (39.0-51.0) Mean Corpuscular Volume 95.9 FL (80.0-100.0) Mean Corpuscular Hemoglobin 32.8 PG (27.0-34.0) Mean Corpuscular Hemoglobin Concent 34.2 % (32.0-36.0) Red Cell Distribution Width 13.9 % (11.6-17.2) Platelet Count 136 TH/MM3 (150-450) Mean Platelet Volume 6.9 FL (7.0-11.0) Neutrophils (%) (Auto) 77.3 % (16.0-70.0) Lymphocytes (%) (Auto) 8.2 % (9.0-44.0) Monocytes (%) (Auto) 13.9 % (0.0-8.0) Eosinophils (%) (Auto) 0.3 % (0.0-4.0) Basophils (%) (Auto) 0.3 % (0.0-2.0) Neutrophils # (Auto) 6.2 TH/MM3 (1.8-7.7) Lymphocytes # (Auto) 0.7 TH/MM3 (1.0-4.8) Monocytes # (Auto) 1.1 TH/MM3 (0-0.9) Eosinophils # (Auto) 0.0 TH/MM3 (0-0.4) Basophils # (Auto) 0.0 TH/MM3 (0-0.2) CBC Comment DIFF FINAL Differential Comment Blood Urea Nitrogen 29 MG/DL (7-18) Creatinine 1.03 MG/DL (0.60-1.30) Random Glucose 134 MG/DL (74-106) Calcium Level 8.0 MG/DL (8.5-10.1) Magnesium Level 2.1 MG/DL (1.5-2.5) Sodium Level 138 MEQ/L (136-145) Potassium Level 4.7 MEQ/L (3.5-5.1) Chloride Level 104 MEQ/L (98-107) Carbon Dioxide Level 29.2 MEQ/L (21.0-32.0) Anion Gap 5 MEQ/L (5-15) Estimat Glomerular Filtration Rate 71 ML/MIN (>89) Result Diagram: 04/08/1751604/08/17516 (1) Coronary artery disease (2) S/P AVR (aortic valve replacement) (3) S/P CABG x 1 Plan: on ASA statin , BB , plavix, amiodarone pulm toileting CPAP at night OOB ambulate CM to eval for [facility] gentle diuresis (4) Aortic stenosis (5) Hyperlipemia Plan: resume statin heart healthy diet (6) Hypertension Plan: stable (7) Obstructive sleep apnea Plan: CPAP machine at night Milena Lama Apr 08, 2017 11:39
[2017-04-08] MEDS ORDERED: FUROSEMIDE 40 MG/4 ML VIAL IV PUSH ONE (11:45)
[2017-04-08] MEDS ORDERED: INSULIN ASPART SUPPLEMENTAL SCALE SQ SCH (17:00)
[2017-04-08] MEDS: SENNOSIDES 8.6 MG TAB PO SCH (21:00)
[2017-04-08] MEDS: PRAVASTATIN SOD 40 MG TAB PO SCH (21:43)
[2017-04-09] VITALS (28 sets, daily range): BP systolic 112–168; BP diastolic 57–81; PULSE 70–83; RESP 16–18; TEMP 97.8–99.4; O2SAT 91–95
[2017-04-09 05:32] LABS: CALCIUM 7.9 MG/DL (8.5-10.1); CREATININE 0.86 MG/DL (0.60-1.30)
--- NOTE | 2017-04-09 05:32 | RADRPT ---
EXAM DATE/TIME: 04/09/2017 04:58 [facility] COMPARISON: CHEST SINGLE AP, April 07, 2017, 4:34. INDICATIONS : Chest tube removal. Evaluate for pneumothorax. MEDICAL HISTORY : None. SURGICAL HISTORY : CABG. ENCOUNTER: Subsequent ACUITY: 3 days PAIN SCORE: 0/10 LOCATION: Bilateral chest FINDINGS: The cardiac silhouette is normal in transverse diameter. Median sternotomy wires are present. There i s bilateral lower lobe atelectasis versus pneumonia. There is no evidence of pneumothorax. Chest tub e has been removed CONCLUSION: 1. There is no evidence of pneumothorax. Mina Stewart MD on April 09, 2017 at 5:29 Board Certified Radiologist. This report was verified electronically.
[2017-04-09] MEDS: PANTOPRAZOLE SOD 40 MG DELAYED RELEASE TAB PO SCH (06:15)
[2017-04-09] MEDS: INSULIN ASPART SUPPLEMENTAL SCALE SQ SCH ×4 (08:00→21:00)
[2017-04-09] MEDS ORDERED: FUROSEMIDE 40 MG/4 ML VIAL IV PUSH ONE (08:45)
[2017-04-09] MEDS ORDERED: POTASSIUM CHLORIDE 20 MEQ CONTROLLED RELEASE TAB PO ONE (08:45)
[2017-04-09] MEDS: POLYETHYLENE GLYCOL 17 GM PKG PO SCH (09:00)
[2017-04-09] MEDS: MAGNESIUM HYDROXIDE SUSP 30 ML CUP PO SCH (09:00)
[2017-04-09] MEDS: CLOPIDOGREL 75 MG TAB PO SCH (09:42)
[2017-04-09] MEDS: ASPIRIN 81 MG CHEW TAB PO SCH (09:42)
[2017-04-09] MEDS: MULTIVITAMINS/MINERALS THERAPEUTIC TAB PO SCH (09:43)
[2017-04-09] MEDS: SODIUM CHLORIDE 0.9% FLUSH 10 ML FLUSH IV FLUSH SCH ×2 (09:43→21:00)
[2017-04-09] MEDS: DOCUSATE SODIUM 100 MG CAP PO SCH ×2 (09:43→21:00)
[2017-04-09] MEDS: AMIODARONE 200 MG TAB PO SCH ×2 (09:43→21:59)
[2017-04-09] MEDS: METOPROLOL TARTRATE 25 MG TAB PO SCH ×2 (09:43→21:59)
[2017-04-09] MEDS ORDERED: PILL SPLITTER OTHER PRN (10:30)
[2017-04-09] MEDS: RESP: ALBUTEROL 2.5 MG/IPRATROPIUM 0.5 MG NEB (SCH) NEB (10:49)
[2017-04-09] MEDS: amLODIPine BESYLATE 5 MG TAB PO SCH (11:05)
--- NOTE | 2017-04-09 11:18 | PD.CAR.PN ---
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 Coronary Artery Bypass Grafting x 1 with reverse saphenous vein graft to the left posterior descending branch of the Circumflex artery (LPDA) 2. Aortic Valve Replacement with 25 mm Medtronic Mosaic Tissue Valve 3. Let Leg Endoscopic Vein Harvesting 4. Intraoperative Vein Mapping 2700cc crystalloid, 500cc cell saver, 1000cc EBL extubated after surgery 04/07/17 painful, up in chair, at bedside, helps to translate for pt / " he is not allergic to Tylenol ( acetaminophen) only oxycodone/ allergy list updated pain meds changed drained 130cc/ 12 hrs from chest tube on nasal cannula started on BB , on ASA, Plavix, statin resumed transfer to stepdown 04/08 chest tube dc without difficulty, v wire removed on nasal cannula 3 liters, + weight , gentle diuresis OOB ambulate 04/09 additional IV lasix given wean off 02 amlodipine added for BP may need to increase BB + BM , eval for dc home in am Objective: GENERAL: A&O x 3 , SKIN: Warm and dry. Prevena dressing to chest , incision intact left leg HEAD: Normocephalic. EYES: No scleral icterus. No injection or drainage. NECK: Supple, trachea midline. No JVD or lymphadenopathy. CARDIOVASCULAR: Regular rate and rhythm without murmurs, gallops, or rubs. RESPIRATORY: diminished in bases Breath sounds equal bilaterally. No accessory muscle use. GASTROINTESTINAL: Abdomen soft, non-tender, nondistended. MUSCULOSKELETAL: No cyanosis, or edema. BACK: Nontender without obvious deformity. No CVA tenderness. Vital Signs Date Time Temp Pulse Resp B/P (MAP) Pulse Ox O2 Delivery O2 Flow Rate FiO2 04/09/17 11:11 92 Nasal Cannula 4.00 04/09/17 10:59 92 Nasal Cannula 2.00 04/09/17 08:00 81 04/09/17 08:00 98.0 79 16 168/81 (110) 92 04/09/17 07:15 95 Nasal Cannula 3.00 04/09/17 07:00 72 04/09/17 06:05 71 04/09/17 05:00 75 04/09/17 04:00 72 04/09/17 03:00 97.8 72 18 122/66 (84) 95 04/09/17 03:00 71 04/09/17 03:00 95 Nasal Cannula 3.00 04/09/17 02:00 70 04/09/17 01:00 70 04/09/17 00:00 74 04/08/17 23:08 18 04/08/17 23:00 96 Nasal Cannula 4.00 04/08/17 23:00 78 04/08/17 23:00 98.4 82 18 144/70 (94) 96 04/08/17 22:00 84 04/08/17 21:00 82 04/08/17 20:07 95 Nasal Cannula 5.00 04/08/17 20:00 80 04/08/17 19:00 96 Nasal Cannula 4.00 04/08/17 19:00 98.3 80 20 113/66 (82) 96 04/08/17 19:00 76 04/08/17 18:00 80 04/08/17 17:00 78 04/08/17 16:00 78 04/08/17 15:00 98.2 78 18 144/73 (96) 94 04/08/17 15:00 95 2.00 04/08/17 15:00 78 04/08/17 14:00 92 04/08/17 13:00 80 04/08/17 12:00 78 Labs: Laboratory Tests Test 04/09/17 04:40 Blood Urea Nitrogen 21 MG/DL (7-18) Creatinine 0.86 MG/DL (0.60-1.30) Random Glucose 108 MG/DL (74-106) Calcium Level 7.9 MG/DL (8.5-10.1) Sodium Level 137 MEQ/L (136-145) Potassium Level 4.3 MEQ/L (3.5-5.1) Chloride Level 101 MEQ/L (98-107) Carbon Dioxide Level 31.0 MEQ/L (21.0-32.0) Anion Gap 5 MEQ/L (5-15) Estimat Glomerular Filtration Rate 88 ML/MIN (>89) Result Diagram: 04/08/17 0517 04/09/17 0440 Telemetry: NSR (1) Coronary artery disease (2) S/P AVR (aortic valve replacement) (3) S/P CABG x 1 Plan: on ASA statin , BB , plavix, amiodarone pulm toileting CPAP at night OOB ambulate CM to eval for HHC gentle diuresis (4) Aortic stenosis (5) Hyperlipemia Plan: statin heart healthy diet (6) Hypertension Plan: stable (7) Obstructive sleep apnea Plan: CPAP machine at night Milena Lama Apr 09, 2017 11:18
[2017-04-09] MEDS: RESP: ALBUTEROL 2.5 MG/IPRATROPIUM 0.5 MG NEB (PRN) NEB ×2 (14:37→21:01)
[2017-04-09] MEDS: SENNOSIDES 8.6 MG TAB PO SCH (21:00)
[2017-04-09] MEDS: PRAVASTATIN SOD 40 MG TAB PO SCH (21:59)
[2017-04-09] MEDS: ACETAMINOPHEN/HYDROcodone 325 MG/7.5 MG TAB PO PRN (22:43)
[2017-04-10] VITALS (20 sets, daily range): BP systolic 116–141; BP diastolic 60–74; PULSE 65–84; RESP 14–16; TEMP 97.8–98.6; O2SAT 91–97
[2017-04-10] MEDS: ACETAMINOPHEN/HYDROcodone 325 MG/7.5 MG TAB PO PRN (02:23)
[2017-04-10] MEDS: PANTOPRAZOLE SOD 40 MG DELAYED RELEASE TAB PO SCH (05:36)
[2017-04-10] MEDS ORDERED: MIDAZOLAM HCL 2 MG/2 ML VIAL ONE (07:11)
[2017-04-10] MEDS ORDERED: fentaNYL CITRATE 1000 MCG/20 ML VIAL ONE (07:12)
[2017-04-10] MEDS: INSULIN ASPART SUPPLEMENTAL SCALE SQ SCH ×3 (08:00→17:00)
[2017-04-10] MEDS: RESP: ALBUTEROL 2.5 MG/IPRATROPIUM 0.5 MG NEB (PRN) NEB ×2 (08:27→15:49)
[2017-04-10] MEDS: DOCUSATE SODIUM 100 MG CAP PO SCH (09:00)
[2017-04-10] MEDS ORDERED: INFLUENZA VIRUS VACCINE (QUADRIVALENT) 0.5 ML SYR IM ONE (09:00)
[2017-04-10] MEDS: POLYETHYLENE GLYCOL 17 GM PKG PO SCH (09:00)
[2017-04-10] MEDS: MAGNESIUM HYDROXIDE SUSP 30 ML CUP PO SCH (09:00)
[2017-04-10] MEDS: METOPROLOL TARTRATE 25 MG TAB PO SCH (09:42)
[2017-04-10] MEDS: MULTIVITAMINS/MINERALS THERAPEUTIC TAB PO SCH (09:42)
[2017-04-10] MEDS: amLODIPine BESYLATE 5 MG TAB PO SCH (09:43)
[2017-04-10] MEDS: AMIODARONE 200 MG TAB PO SCH (09:43)
[2017-04-10] MEDS: CLOPIDOGREL 75 MG TAB PO SCH (09:43)
[2017-04-10] MEDS: ASPIRIN 81 MG CHEW TAB PO SCH (09:43)
[2017-04-10] MEDS: SODIUM CHLORIDE 0.9% FLUSH 10 ML FLUSH IV FLUSH SCH (09:43)
[2017-04-10] MEDS ORDERED: FUROSEMIDE 40 MG/4 ML VIAL IV PUSH ONE (10:00)
[2017-04-10] MEDS ORDERED: POTASSIUM CHLORIDE 20 MEQ CONTROLLED RELEASE TAB PO ONE (10:00)
[2017-04-10] MEDS ORDERED: OXYGENDME NAS.CANULA (14:08)
[2017-04-10] MEDS ORDERED: PLAV75TA29 PO (14:35)
[2017-04-10] MEDS ORDERED: NORC5TAB PO (14:35)
[2017-04-10] MEDS ORDERED: DOCU1CAP39 PO (14:35)
[2017-04-10] MEDS ORDERED: METO25TA3 PO (14:35)
[2017-04-10] MEDS ORDERED: AMIO200T PO (14:35)
[2017-04-10] MEDS ORDERED: THERM PO (14:35)
--- NOTE | 2017-04-10 14:43 | HHI.DS ---
Discharge Summary Admission Date Apr 06, 2017 at 05:32 Discharge Date: Apr 10, 2017 Admitting Diagnosis severe aortic stenosis, CAD (1) Coronary artery disease Diagnosis: Principal ICD Codes: I25.10 - Atherosclerotic heart disease of [place] coronary artery without angina pectoris (2) Aortic stenosis Diagnosis: Principal ICD Codes: I35.0 - Nonrheumatic aortic (valve) stenosis (3) Hyperlipemia Diagnosis: Principal ICD Codes: E78.5 - Hyperlipidemia, unspecified Status: Chronic (4) Hypertension Diagnosis: Principal ICD Codes: I10 - Essential (primary) hypertension Status: Chronic (5) Obstructive sleep apnea ICD Codes: G47.33 - Obstructive sleep apnea (adult) (pediatric) Status: Chronic (6) Hypoxemia Diagnosis: Principal ICD Codes: R09.02 - Hypoxemia (7) S/P AVR (aortic valve replacement) Diagnosis: Secondary ICD Codes: Z95.2 - Presence of prosthetic heart valve (8) S/P CABG x 1 Diagnosis: Secondary ICD Codes: Z95.1 - Presence of aortocoronary bypass graft Procedures SURGICAL PROCEDURE 04/06 1. Coronary Artery Bypass Grafting x 1 with reverse saphenous vein graft to the left posterior descending branch of the Circumflex artery (LPDA) 2. Aortic Valve Replacement with 25 mm Medtronic Mosaic Tissue Valve 3. Let Leg Endoscopic Vein Harvesting 4. Intraoperative Vein Mapping Brief History 71/ male progressive weakness, dyspnea and fatigue , underwent evaluation by Senior [employer] Engineer Dr Lujan, found to have severe , single vessel CAD / 90% LPDA , preserved LF function here for elective AVR/ CABG x 1 PMH: , CAD , TB at age 4, HTN, DJD both knees , SOHAN CBC/BMP: 04/08/17 0517 04/09/17 0440 Significant Findings Laboratory Tests Test 04/08/17 05:17 04/09/17 04:40 Red Blood Count 3.25 MIL/MM3 (4.50-5.90) Hemoglobin 10.7 GM/DL (13.0-17.0) Hematocrit 31.2 % (39.0-51.0) Platelet Count 136 TH/MM3 (150-450) Mean Platelet Volume 6.9 FL (7.0-11.0) Neutrophils (%) (Auto) 77.3 % (16.0-70.0) Lymphocytes (%) (Auto) 8.2 % (9.0-44.0) Monocytes (%) (Auto) 13.9 % (0.0-8.0) Lymphocytes # (Auto) 0.7 TH/MM3 (1.0-4.8) Monocytes # (Auto) 1.1 TH/MM3 (0-0.9) Blood Urea Nitrogen 29 MG/DL (7-18) 21 MG/DL (7-18) Random Glucose 134 MG/DL (74-106) 108 MG/DL (74-106) Calcium Level 8.0 MG/DL (8.5-10.1) 7.9 MG/DL (8.5-10.1) Estimat Glomerular Filtration Rate 71 ML/MIN (>89) 88 ML/MIN (>89) Imaging Last Impressions Chest X-Ray 04/09/17 0600 Signed Impressions: Service Date/Time: , April 09, 2017 04:58 - CONCLUSION: 1. There is no evidence of pneumothorax. Mina Stewart MD PE at Discharge GENERAL: A&O x 3 SKIN: Warm and dry. prevena to chest , incision intact to left leg HEAD: Normocephalic. EYES: No scleral icterus. No injection or drainage. NECK: Supple, trachea midline. No JVD or lymphadenopathy. CARDIOVASCULAR: Regular rate and rhythm without murmurs, gallops, or rubs. RESPIRATORY: Breath sounds equal bilaterally. No accessory muscle use. diminished in bases GASTROINTESTINAL: Abdomen soft, non-tender, nondistended. MUSCULOSKELETAL: No cyanosis, or edema. BACK: Nontender without obvious deformity. No CVA tenderness. Hospital Course 04/07/17 painful, up in chair, at bedside, helps to translate for pt / " he is not allergic to Tylenol ( acetaminophen) only oxycodone/ allergy list updated pain meds changed drained 130cc/ 12 hrs from chest tube on nasal cannula started on BB , on ASA, Plavix, statin resumed transfer to stepdown 04/08 chest tube dc without difficulty, v wire removed on nasal cannula 3 liters, + weight , gentle diuresis OOB ambulate 04/09 additional IV lasix given wean off 02 amlodipine added for BP may need to increase BB + BM , eval for dc home in am 04/10 did not pass walk test will dc home with home [facility] to monitor 02 continue gentle diuresis remains in NSR stable for dc home Pt Condition on Discharge: Good Discharge Disposition: Disch w/ Home Health Serv Discharge Instructions DIET: Follow Instructions for: Heart Healthy Diet Activities you can perform: Full Weight Bearing, Shower Only-No Bath Activities to avoid: Driving Additional Activity Instructio: no lifting > 8 lbs or gallon of milk Follow up Referrals: Cardiology, Interventional - [address] Vladislav Lujan [address] [place] [address] PCP Follow-up - 2 Weeks with Trina Maradiaga Jr., MD Surgical - 2 Weeks with Milena Lama New Medications: Hydrocodone-Acetaminophen ([place]) 5 Mg-325 Mg Tab 1 TAB PO Q4H PRN for PAIN, #40 TAB 0 Refills Oxygen (O2) (Oxygen (O2)) Device LITER EITAN.CANULA CONTINUOUS for Prevent Hypoxemia, #3 Oxygen Concentrator Portable Gaseous 2 L/min via Nasal Canula Continuous For 99 months Amiodarone (Amiodarone) 200 Mg Tab 200 MG PO Q12HR for heart rhythm, #28 TAB 0 Refills Clopidogrel (Plavix) 75 Mg Tab 75 MG PO DAILY for Blood Clot Prevention, #30 TAB 2 Refills Docusate Sodium (Dok) 100 Mg Cap 100 MG PO BID for Constipation, #60 CAP 0 Refills Metoprolol Tartrate (Metoprolol Tartrate) 25 Mg Tab 25 MG PO BID for Blood Pressure Management, #60 TAB 2 Refills Multiple Vitamins W/ Minerals (Thera M Plus) 1 Tab 1 TAB PO DAILY for multi vitamin, #30 TAB 2 Refills Continued Medications: Amlodipine (Amlodipine) 5 Mg Tab 7.5 MG PO DAILY for Blood Pressure Management, #30 TAB [address] (Aspirin EC) 81 Mg Tabdr 81 MG PO DAILY, TAB [address] (Diclofenac Sodium DR) 75 Mg Tabdr 75 MG PO DAILY PRN for pain, #30 TAB 0 Refills Hydrochlorothiazide (Hydrochlorothiazide) 25 Mg Tab 25 MG PO DAILY PRN for hypertension, #30 TAB 0 Refills Lovastatin (Lovastatin) 40 Mg Tab 40 MG PO HS for Cholesterol Management, #30 TAB 0 Refills Pantoprazole (Pantoprazole) 40 Mg Tab 40 MG PO DAILY PRN for gerd, #30 TAB 0 Refills Discontinued Medications: Ibuprofen (Ibuprofen) 800 Mg Tab 800 MG PO Q8H PRN for pain, TAB 0 Refills Losartan (Losartan) 50 Mg Tab 50 MG PO DAILY for Blood Pressure Management, #30 TAB 0 Refills Milena Lama Apr 10, 2017 14:43
[2017-04-10] MEDS ORDERED: POTA-163 PO (15:02)
[2017-04-10] MEDS ORDERED: FURO1TAB60 PO (15:02)
--- NOTE | 2017-04-10 15:14 | RADRPT ---
EXAM DATE/TIME: 04/10/2017 14:16 [place] COMPARISON: CHEST SINGLE AP, April 09, 2017, 4:58. INDICATIONS : Evaluate for effusion. MEDICAL HISTORY : None. SURGICAL HISTORY : CABG. ENCOUNTER: Subsequent ACUITY: 4 - 6 days PAIN SCORE: 0/10 LOCATION: Bilateral chest FINDINGS: There is no significant pleural effusion. There is elevation of the right hemidiaphragm. Bibasilar infiltrates are noted. Heart is minimally enlarged. Sternal wires and biopsy are evident. CONCLUSION: Interval improvement better aeration. There is no significant pleural effusion. Say Krishna MD FACR on April 10, 2017 at 15:10 Board Certified Radiologist. This report was verified electronically.
== END 2017-04-10 17:58 | disposition home health service (06) | DRG 221 ==
LOC: HSDI 05:32 → HCVI 13:14 → HCPC 04-07 14:00
PROVIDERS: ADMIT Thoracic Surgery (Cardiothoracic Vascular Surgery); ATTEND Thoracic Surgery (Cardiothoracic Vascular Surgery)
PROC: 06BQ4ZZ Excision of Left Saphenous Vein, Percutaneous Endoscopic Approach (ICD-10-PCS; 2017-04-06)
PROC: 5A1221Z Performance of Cardiac Output, Continuous (ICD-10-PCS; 2017-04-06)
PROC: B246ZZ4 Ultrasonography of Right and Left Heart, Transesophageal (ICD-10-PCS; 2017-04-06)
PROC: 02RF08Z Replacement of Aortic Valve with Zooplastic Tissue, Open Approach (ICD-10-PCS; principal; 2017-04-06 07:18)
PROC: 021009W Bypass Coronary Artery, One Artery from Aorta with Autologous Venous Tissue, Open Approach (ICD-10-PCS; 2017-04-06 07:18)
DX: I35.0 Nonrheumatic aortic (valve) stenosis (principal); I10 Essential (primary) hypertension; I25.10 Atherosclerotic heart disease of native coronary artery without angina pectoris; E78.5 Hyperlipidemia, unspecified; G47.33 Obstructive sleep apnea (adult) (pediatric); R09.02 Hypoxemia; Z23 Encounter for immunization; Z88.5 Allergy status to narcotic agent
CPT/HCPCS: 71045; 76937; 80048; 82948; 83735; 85025; 85027; 86850; 86900; 86901; 86920; 87015; 87070; 87102; 87116; 87205; 87206; 87641; 88305; 88311; 90686; 93005; 93318; 94002; 94010; 94150; 94618; 94640; 94664; 94667; 94668; C1768; J0690; J1644; J1815; J1817; J1885; J1940; J2150; J2250; J2370; J2405; J2440; J2720; J3010; J3370; J3475; J3480; J7050; J7120; P9047; Q2038